=== PATIENT | female | born 1995 | race Caucasian/White ===

== ENCOUNTER 2016-03-06 17:06 | Emergency (ER) | payer OTHER | END 2016-03-06 17:35 | disposition left against medical advice (07) | LOC: ER 17:06 | DX: Z53.9 Procedure and treatment not carried out, unspecified reason (principal) ==

== ENCOUNTER 2016-04-05 11:20 | Emergency (ER) | payer OTHER ==
[2016-04-05] MEDS ORDERED: DIPH/PERTUSS(ACELL)/TETANUS VAC/PF 0.5 ML SYR (>=10YO) IM ONE (11:34)
[2016-04-05] MEDS ORDERED: IBUPROFEN 800 MG TABLET PO ONE (11:34)
--- NOTE | 2016-04-05 11:34 | ER Document Report ---
ED Medical Screen (RME) - General Stated Complaint: DOG BITE LEG PAIN Time seen by provider: 11:32 Mode of Arrival: Ambulatory Information source: Patient Notes: 21-year-old female presents to ED for dog bites to her right calf and thigh. She states she had the break up a dog fight between her old dog and her new doctor she just bought. She states both dogs are up-to-date in her shots. She states she does not know when her last tetanus shot was. Last menstrual period 04/03/2016 I have greeted and performed a rapid initial assessment of this patient. A comprehensive ED assessment and evaluation of the patient, analysis of test results and completion of medical decision making process will be conducted by an additional ED providers. TRAVEL OUTSIDE OF THE [place] IN LAST 30 DAYS: No - Related Data Allergies/Adverse Reactions: No Known Allergies Allergy (Verified 04/05/16 11:29) Past Medical History Pulmonary Medical History: Reports: Hx Bronchitis, Hx Pneumonia Neurological Medical History: Reports: Hx Migraine GI Medical History: Reports: Hx Gastroesophageal Reflux Disease Musculoskeltal Medical History: Reports Hx Musculoskeletal Deformity, Reports Hx Musculoskeletal Trauma Psychiatric Medical History: Reports: Hx Depression, Hx Post Traumatic Stress Disorder Past Surgical History: Reports: Hx Orthopedic Surgery, Hx Tonsillectomy Physical Exam - Vital signs Vitals: Temp Pulse Resp BP Pulse Ox 98.6 F 98 20 120/60 100 04/05/16 11:31 04/05/16 11:31 04/05/16 11:31 04/05/16 11:31 04/05/16 11:31 Course - Vital Signs Vital signs: Temp Pulse Resp BP Pulse Ox 98.6 F 98 20 120/60 100 04/05/16 11:31 04/05/16 11:31 04/05/16 11:31 04/05/16 11:31 04/05/16 11:31
[2016-04-05] MEDS ORDERED: AMOXICILLIN TR/POT CLAVULANATE 500-125 MG TAB PO ONE (12:50)
--- NOTE | 2016-04-05 12:59 | ER Document Report ---
ED General - General Chief Complaint: Dog Bite Stated Complaint: DOG BITE LEG PAIN Mode of Arrival: Ambulatory Information source: Patient Notes: Patient presents to the emergency department with complaints of dog bite. Patient reports she was breaking up a fight between her dog a herrera retriever and and a can bull that she was trying to rescue. She reports the pit bull was scheduled to be put down for agressive behavior. Dogs shots up to date. Pt is unsure when last tetanus was. Patient reports she tried to clean the area herself some peroxide but it hurt. TRAVEL OUTSIDE OF THE [place] IN LAST 30 DAYS: No - HPI Onset: Just prior to arrival Quality of pain: Achy Severity: Severe Pain Level: 5 Associated symptoms: None Exacerbated by: Denies Relieved by: Denies Similar symptoms previously: No Recently seen / treated by doctor: No - Related Data Allergies/Adverse Reactions: No Known Allergies Allergy (Verified 04/05/16 11:29) Past Medical History - General Information source: Patient Last Menstrual Period: current - Social History Smoking Status: Current Every Day Smoker Cigarette use (# per day): Yes Chew tobacco use (# tins/day): Yes Frequency of alcohol use: None Drug Abuse: None Occupation: student Lives with: Family Family History: Reviewed & Not Pertinent, Arthritis, CAD, DM, Hyperlipidemia, Hypertension Patient has suicidal ideation: No Patient has homicidal ideation: No Pulmonary Medical History: Reports: Hx Bronchitis, Hx Pneumonia Neurological Medical History: Reports: Hx Migraine Renal/ Medical History: Denies: Hx Peritoneal Dialysis GI Medical History: Reports: Hx Gastroesophageal Reflux Disease Musculoskeltal Medical History: Reports Hx Musculoskeletal Deformity, Reports Hx Musculoskeletal Trauma Psychiatric Medical History: Reports: Hx Anxiety, Hx Depression, Hx Post Traumatic Stress Disorder Past Surgical History: Reports: Hx Orthopedic Surgery, Hx Tonsillectomy Review of Systems - Review of Systems Notes: Review HPI for review of systems., All other systems negative Physical Exam - Vital signs Vitals: Temp Pulse Resp BP Pulse Ox 98.6 F 98 20 120/60 100 04/05/16 11:31 04/05/16 11:31 04/05/16 11:31 04/05/16 11:31 04/05/16 11:31 - Notes Notes: PHYSICAL EXAMINATION: GENERAL: Well-appearing extemely anxious tearful HEAD: Atraumatic, normocephalic. EYES: Pupils equal round extraocular movements intact, sclera anicteric, conjunctiva are normal. ENT: nares patent, Moist mucous membranes. NECK: Normal range of motion, supple without lymphadenopathy LUNGS: RR Even.unlabored HEART: Regular rate ABDOMEN: no c/o abdominal pain EXTREMITIES: Normal range of motion, no pitting edema. No cyanosis. dog bite, teeth black noted to right lateral leg, distal thigh, calf, no active bleeding NEUROLOGICAL: Cranial nerves grossly intact. Normal sensory/motor exams. PSYCH: Normal mood, normal affect. SKIN: Warm, Dry, normal turgor, no rashes or lesions noted- dog bite to two areas on the right lateral leg, teeth black, distal thigh, calf, no active bleeding Course - Re-evaluation Re-evalutation: 04/05/16 12:57 Emotional support given to patient. Patient was offered stronger pain medication than Motrin but declined. She reports she drove here. Patient is very tearful worried that with her leg will hurt when it is cleaned. We discussed signs and symptoms of infection, reasons for cleaning the leg. Also instructed patient on Augmentin I have consulted the attending provider dr de leon per [facility] guidelines - Vital Signs Vital signs: Temp Pulse Resp BP Pulse Ox 98.6 F 87 17 120/74 98 04/05/16 13:37 04/05/16 13:37 04/05/16 13:37 04/05/16 13:37 04/05/16 13:37 Discharge - Discharge Clinical Impression: Dog bite of multiple sites of right lower extremity Qualifiers: Encounter type: initial encounter Qualified Code(s): S81.851A - Open bite, right lower leg, initial encounter Condition: Stable Disposition: HOME, SELF-CARE Instructions: Animal Bites ([facility]), Augmentin ([facility]), Tetanus Immunization Given ( [facility]) Additional Instructions: *You have been treated for an abscess with incision and drainage *Take medication as prescribed *Monitor the site for signs of infection such as increasing pain, redness, swelling, warmth *Wash the site twice daily as discussed *Follow up with a primary care provider within 3 days for recheck, return to ED for signs of infection, concerns *Return to ED for signs of infection, worsening condition, changes, needs Prescriptions: Amoxicillin/Potassium Clav [Augmentin 875-125 Tablet] 1 each PO BID #20 tablet Forms: Return to School
[2016-04-05 13:41] VITALS: BP 120/74
== END 2016-04-05 13:41 | disposition home or self-care (01) ==
LOC: ER 11:20
DX: S81.851A Open bite, right lower leg, initial encounter (principal); S70.371A Other superficial bite of right thigh, initial encounter; W54.0XXA Bitten by dog, initial encounter; Y93.89 Activity, other specified; F17.210 Nicotine dependence, cigarettes, uncomplicated
CPT/HCPCS: 90471; 90715; 99283

== ENCOUNTER 2016-07-06 20:32 | Emergency (ER) | payer OTHER ==
[2016-07-06 22:13] VITALS: BP 123/76
== END 2016-07-07 00:10 | disposition left against medical advice (07) ==
LOC: ER 20:32
DX: Z53.21 Procedure and treatment not carried out due to patient leaving prior to being seen by health care provider (principal)

== ENCOUNTER → 2016-08-19 | Outpatient (CLI) | payer OTHER ==
--- NOTE | 2016-08-19 15:07 | RADIOLOGY REPORT (SQ) ---
EXAM DESCRIPTION: MRI THORACIC SPINE WITHOUT COMPLETED DATE/TIME: 08/19/2016 11:23 am REASON FOR STUDY: OTH INCMPL LESION AT UNSP LEVEL OF THOR SPINAL CORD, SEQUELA (S24.159S) S24.159S OTH INCMPL LESION AT UNSP LEVEL OF THOR SPINAL CORD COMPARISON: None. TECHNIQUE: Sagittal and Axial imaging includes T1, T2, STIR and gradient echo sequences. LIMITATIONS: None. FINDINGS: LOCALIZER: No worrisome findings. ALIGNMENT: Less than 5 of convex rightward upper thoracic curvature. VERTEBRAE: Intact. BONE MARROW: Normal. No marrow replacement or reactive changes. HARDWARE: None in the spine. CORD: Normal in size and signal intensity. SOFT TISSUES: No soft tissue masses. THORACIC DISCS T1-T12: No significant spinal stenosis or exit foraminal stenosis. There is very mild facet arthropathy bilaterally at T1 to, T2-3, and T3-4. Mild bilateral facet arthropathy at T9-10, and T10-11. OTHER: No other significant finding. IMPRESSION: Mild upper and a lower thoracic facet arthropathy without significant central or foramin al stenosis. No disc herniation. TECHNICAL DOCUMENTATION: JOB ID: [id number] [employer]- All Rights Reserved
== END ==
LOC: RAD 09:46
PROVIDERS: ATTEND Physician Assistant
DX: M54.9 Dorsalgia, unspecified (principal); M46.84 Other specified inflammatory spondylopathies, thoracic region
CPT/HCPCS: 72146